=== PATIENT | male | born 1945 ===

== ENCOUNTER 2025-05-14 11:47 | Emergency (ER) | payer MEDICARE, OTHER ==
[2025-05-14] MEDS ORDERED: Sodium Chloride 0.9% 10 ML Syringe FLUSH PRN (12:05)
[2025-05-14 12:12] LABS: BASOPHILS ABSOLUTE AUTO 0.03 K/uL (0.00-0.10); BASOPHILS PERCENT AUTO 0.4 % (0.1-1.3); EOSINOPHILS ABSOLUTE AUTO 0.16 K/uL (0.00-0.40); EOSINOPHILS PERCENT AUTO 2.2 % (0.0-5.4); IMMATURE GRAN PERCENT AUTO 0.3 % (0.0-0.7); LYMPHOCYTES ABSOLUTE AUTO 1.49 K/uL (0.8-3.3); LYMPHOCYTES PERCENT AUTO 20.2 % (11.4-47.7); MONOCYTES ABSOLUTE AUTO 0.64 K/uL (0.20-0.90); MONOCYTES PERCENT AUTO 8.7 % (3.3-12.6); NEUTROPHILS ABSOLUTE AUTO 5.03 K/uL (1.0-7.6); NEUTROPHILS PERCENT AUTO 68.2 % (40.0-78.1); PLATELET COUNT,PLT 187 K/uL (130-375); RED BLOOD CELL COUNT 3.52 M/uL (4.14-5.76); WHITE BLOOD CELL COUNT,WBC 7.4 K/uL (3.2-11.0)
[2025-05-14] MEDS: Acetaminophen 1,000 MG in Premix Bag 1 BAG IV ONE (12:13)
[2025-05-14] MEDS: Lactated Ringers 1,000 ML IV ONE (12:13)
[2025-05-14 12:14] LABS: IMMATURE GRAN ABSOLUTE AUTO 0.02 K/uL (0.00-0.23)
[2025-05-14 12:28] LABS: BLOOD UREA NITROGEN,BUN 27.0 mg/dL (7-18); CARBON DIOXIDE,CO2 28.0 mmol/L (21-32); CHLORIDE,CL 90.0 mmol/L (100-108); CREATININE 1.2 mg/dL (0.8-1.3); EST CRCL DRUG DOSING (CG) 42.0 mL/min; ESTIMATED GFR 61.0 mL/min (>60); GLUCOSE RANDOM 194.0 mg/dL (74-106); POTASSIUM,K 3.8 mmol/L (3.6-5.2); SODIUM,NA 125.0 mmol/L (140-148)
[2025-05-14 12:29] LABS: INR 1.1
[2025-05-14] MEDS: Lactated Ringers 1,000 ML IV SCH (12:32)
[2025-05-14] MEDS: Magnesium Sulfate 2 GM/50 mL 2 GM in Premix Bag 1 BAG IV ONE (14:17)
[2025-05-14] MEDS: Bacitracin Oint 1 GM U/D Packet TOP ONE (14:20)
[2025-05-14] MEDS: Iopamidol 612 MG/ML 100 ML Bottle IV ONE (16:05)
[2025-05-14] MEDS: Sodium Chloride 0.9% 10 ML Syringe FLUSH ONE (16:05)
== END 2025-05-14 16:27 ==
LOC: JP.ED 11:47
DX: S42.21 Unspecified fracture of surgical neck of humerus (principal); S42.202B Unspecified fracture of upper end of left humerus, initial encounter for open fracture; S52.022A Displaced fracture of olecranon process without intraarticular extension of left ulna, initial encounter for closed fracture; E87.1 Hypo-osmolality and hyponatremia; E83.42 Hypomagnesemia; Z79.899 Other long term (current) drug therapy; Z79.82 Long term (current) use of aspirin; W01.0XXA Fall on same level from slipping, tripping and stumbling without subsequent striking against object, initial encounter
CPT/HCPCS: 36415; 71260; 73020; 73070; 74177; 80048; 83735; 85018; 85025; 85610; 86850; 86900; 86901; 86920; 86922; 96361; 96365; 96366; 96367; 96375; 99284; 99285; A4217; J0131; J0690; J3475; J7120; P9016; Q9967; J1171